=== PATIENT | male | born 1965 | race Caucasian/White ===

== ENCOUNTER 2016-06-29 06:14 | Day surgery (SDC) | payer OTHER ==
[2016-06-29] MEDS ORDERED: ACETAMINOPHEN 1,000 MG/100 ML 0 ML IV ONE (06:32)
[2016-06-29] MEDS ORDERED: CELECOXIB 100 MG CAPSULE PO ONE (06:32)
[2016-06-29] MEDS ORDERED: SCOPOLAMINE PATCH TOP ONE (06:32)
[2016-06-29] MEDS ORDERED: LACTATED RINGERS 1,000 ML IV ONE (06:41)
== END 2016-06-29 06:15 | disposition home or self-care (01) ==
DX: Z53.9 Procedure and treatment not carried out, unspecified reason (principal)

== ENCOUNTER 2016-07-15 06:15 | Day surgery (SDC) | payer OTHER ==
[2016-07-15] MEDS ORDERED: ceFAZolin 2 GM/50 ML 50 ML IV ONE (06:29)
[2016-07-15] MEDS ORDERED: CELECOXIB 100 MG CAPSULE PO ONE (06:29)
[2016-07-15] MEDS ORDERED: ACETAMINOPHEN 1,000 MG/100 ML 100 ML IV ONE (06:29)
[2016-07-15] MEDS ORDERED: SCOPOLAMINE PATCH TOP ONE (06:29)
[2016-07-15] MEDS ORDERED: LACTATED RINGERS 1,000 ML IV ONE ×2 (06:33→13:26)
[2016-07-15] MEDS ORDERED: ACETAMINOPHEN 1,000 MG/100 ML VIAL IV ONE (08:30)
[2016-07-15] MEDS ORDERED: PROPOFOL 200 MG/20 ML VIAL IVP ONE (08:30)
[2016-07-15] MEDS ORDERED: ceFAZolin 2 GM/50 ML BAG IV ONE (08:30)
[2016-07-15] MEDS ORDERED: MIDAZOLAM 2 MG/2 ML VIAL IVP ONE (08:30)
[2016-07-15] MEDS ORDERED: DEXAMETHASONE 4 MG/ML VIAL IVP ONE (08:30)
[2016-07-15] MEDS ORDERED: fentaNYL 250 MCG/5 ML VIAL IVP ONE (08:30)
[2016-07-15] MEDS ORDERED: BUPIVACAINE 0.5%-EPI 1:200000 PF 30 ML VIAL SUBQ ONE (08:30)
[2016-07-15] MEDS ORDERED: LIDOCAINE-MPF 2% 5 ML VIAL IM ONE (08:30)
[2016-07-15] MEDS ORDERED: ONDANSETRON 4 MG/2 ML VIAL IVP ONE (08:30)
[2016-07-15] MEDS ORDERED: BUPIVACAINE 0.5% PF 30 ML VIAL INFIL ONE (10:14)
[2016-07-15] MEDS ORDERED: ONDANSETRON 4 MG/2 ML VIAL ONE (10:55)
[2016-07-15] MEDS: HYDROmorphone 1 MG/ML SYRINGE ONE ×4 (11:06→11:36)
[2016-07-15] MEDS ORDERED: oxyCODONE 5 MG TABLET ONE (13:21)
== END 2016-07-15 06:16 | disposition home or self-care (01) ==
PROC: 0RBJ4ZZ Excision of Right Shoulder Joint, Percutaneous Endoscopic Approach (ICD-10-PCS; principal; 2016-07-15 07:30)
PROC: 0LM14ZZ Reattachment of Right Shoulder Tendon, Percutaneous Endoscopic Approach (ICD-10-PCS; 2016-07-15 07:30)
PROC: 0PB94ZZ Excision of Right Clavicle, Percutaneous Endoscopic Approach (ICD-10-PCS; 2016-07-15 07:30)
DX: S43.431A Superior glenoid labrum lesion of right shoulder, initial encounter (principal); M75.41 Impingement syndrome of right shoulder; M19.011 Primary osteoarthritis, right shoulder; M67.921 Unspecified disorder of synovium and tendon, right upper arm
CPT/HCPCS: 29823; 29828; 73000; 73060; A9270; C1713; J0131; J0690; J1170; J3010; J3490; J7120

== ENCOUNTER 2017-08-07 13:13 | Outpatient (CLI) | payer OTHER ==
[2017-08-07] MEDS ORDERED: IOTHALAMATE MEGLUMINE 50 ML VIAL ONE (13:25)
[2017-08-07] MEDS ORDERED: LIDOCAINE 1% 10 ML MDV ONE (13:25)
[2017-08-07] MEDS ORDERED: GADOPENTETATE DIMEGLUMINE 5 ML VIAL IVP ONE ×2 (13:26→14:23)
[2017-08-07] MEDS ORDERED: IOTHALAMATE MEGLUMINE 50 ML VIAL IVP ONE (14:23)
[2017-08-07] MEDS ORDERED: LIDOCAINE 1% 10 ML MDV SUBQ ONE (14:23)
[2017-08-07] MEDS ORDERED: BUFFERED LIDOCAINE 10 ML SYRINGE IU ONE (14:23)
--- NOTE | 2017-08-07 15:42 | XRAY Report ---
FLUOROSCOPICALLY GUIDED LEFT SHOULDER INJECTION FOR MR ARTHROGRAM: 08/07/2017 CLINICAL INDICATION: Left shoulder pain. FINDINGS: Following obtaining informed consent, the patient's left shoulder was prepped and draped in the usual sterile fashion. The skin and soft tissues were anesthetized with lidocaine. A spinal needle was inserted into the left glenohumeral joint, and following confirmation of needle positioning, a combination of iodinated contrast, dilute gadolinium, and lidocaine was injected intraarticularly. The patient tolerated the procedure well. No immediate complications. Spot image reveals no evidence of contrast extravasation. IMPRESSION: SUCCESSFUL LEFT SHOULDER INJECTION FOR MR ARTHROGRAM. FLUOROSCOPY TIME: 26 SECONDS; 1 SPOT IMAGE OBTAINED. TD: 08/07/2017 15:41
--- NOTE | 2017-08-08 09:11 | MRI Report ---
EXAM: LEFT SHOULDER MRI ARTHROGRAM WITH CONTRAST EXAM DATE: 08/07/2017 02:42 PM. CLINICAL HISTORY: Left shoulder pain. COMPARISON: Right shoulder arthrogram 12/18/2015. TECHNIQUE: Multiplanar, multisequence T1-weighted and fluid-sensitive sequences of the shoulder after an arthrographic injection of dilute gadolinium, dictated under a separate exam. Other: None. FINDINGS: Acromioclavicular Region: The acromion is type II. Moderate arthrosis acromioclavicular joint. The co racoacromial and coracoclavicular ligaments are intact. Negative for subscapularis subdeltoid bursa c ontrast. Small fluid collection subacromial subdeltoid bursa. Glenohumeral Region: No subluxation. No loose bodies. The articular cartilage is unremarkable. The gl enohumeral ligaments and joint capsule are unremarkable. Bone Marrow: No fracture, marrow edema or bone lesions. Labrum: Superior labrum tear.. Biceps Tendon: The long head of the biceps tendon and biceps tee are intact. Musculature/Rotator Cuff: Linear fluid signal deep to the distal subscapularis tendon on the sagittal oblique proton-density fat-saturated sequence. Negative for contrast signal tear subscapularis tendo n. Negative for infraspinatus and supraspinatus tendon tear. Other: The subcutaneous tissues are unremarkable. IMPRESSION: 1. Superior labrum tear. 2. Negative for rotator cuff tear. 3. Moderate arthrosis acromioclavicular joint. [facility] MUSCULOSKELETAL RADIOLOGY SECTION Referring Provider Line: [phone] SITE ID: [id number]
== END 2017-08-07 13:14 | disposition home or self-care (01) ==
LOC: DI 13:13
PROVIDERS: ATTEND Orthopaedic Surgery
DX: S43.492A Other sprain of left shoulder joint, initial encounter (principal); M19.012 Primary osteoarthritis, left shoulder
CPT/HCPCS: 23350; 73222; 77002; Q9961

== ENCOUNTER 2017-08-08 10:25 | Day surgery (SDC) | payer OTHER ==
[2017-08-08] MEDS ORDERED: LACTATED RINGERS 1,000 ML IV ONE (10:49)
[2017-08-08] MEDS ORDERED: MIDAZOLAM 2 MG/2 ML VIAL IVP ONE (11:55)
[2017-08-08] MEDS ORDERED: fentaNYL 100 MCG/2 ML VIAL IVP ONE (11:55)
[2017-08-08 13:17] VITALS: BP 109/85
[2017-08-08] MEDS ORDERED: ONDANSETRON ODT 4 MG TABLET ONE (13:48)
== END 2017-08-08 10:26 | disposition home or self-care (01) ==
LOC: SDS 10:25
PROVIDERS: ATTEND Surgery
PROC: 0DJD8ZZ Inspection of Lower Intestinal Tract, Via Natural or Artificial Opening Endoscopic (ICD-10-PCS; principal; 2017-08-08 10:45)
DX: Z12.11 Encounter for screening for malignant neoplasm of colon (principal); K64.8 Other hemorrhoids
CPT/HCPCS: 45378; J7120; Q0162

== ENCOUNTER 2018-06-22 14:26 | Outpatient (CLI) | payer OTHER ==
--- NOTE | 2018-06-22 15:54 | MRI Report ---
Reason: ANEURYSM OF UNSPECIFIED SITE Procedure Date: 06/22/2018 Accession Number: [id number] / [id number] Procedure: MRI - Angio Brain W/O (MRA) CPT Code: FULL RESULT: EXAM MRA BRAIN EXAM DATE: 06/22/2018 02:53 PM. CLINICAL HISTORY: 53-year-old man with history of aneurysm. COMPARISON: BRAIN ANGIO W/O 09/17/2015 8:01 AM. TECHNIQUE: Multiplanar, multisequence MRA sequences of the brain were performed. Other: None. Post-processing: Multiplanar 3D MIP reconstructions. IV Contrast: None. FINDINGS: RIGHT: - Visualized Internal Carotid: Patent without significant stenosis or aneurysm. - Anterior Cerebral: Patent without significant stenosis or aneurysm. - Middle Cerebral: Patent without significant stenosis or aneurysm. - Posterior Cerebral: Patent without significant stenosis or aneurysm. - Posterior Communicating: Not well seen. - Visualized Vertebral: Patent without significant stenosis or dissection. LEFT: - Visualized Internal Carotid: Patent without significant stenosis. 2 mm aneurysm is present along the anterior genu of the cavernous segment directed posteriorly and medially towards the sella, unchanged from the 09/17/2015 exam. - Anterior Cerebral: Patent without significant stenosis or aneurysm. - Middle Cerebral: Patent without significant stenosis or aneurysm. - Posterior Cerebral: Patent without significant stenosis or aneurysm. - Posterior Communicating: Not well seen. - Visualized Vertebral: Patent without significant stenosis or dissection. CENTRAL: - Anterior Communicating: Patent. No aneurysm. - Basilar: Patent without significant stenosis, dissection, or aneurysm. IMPRESSION: 1. 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 [facility]
== END 2018-06-22 14:27 | disposition home or self-care (01) ==
LOC: DI 14:26
PROVIDERS: ATTEND Family Medicine
DX: I67.1 Cerebral aneurysm, nonruptured (principal)
CPT/HCPCS: 70544

== ENCOUNTER 2022-03-04 11:57 | Outpatient (CLI) | payer OTHER ==
--- NOTE | 2022-03-04 12:04 | SLEEP CARE CONSULTATION ---
Information from patient questionnaire entered by Jennifer Romero MA. I have reviewed and concur with the information entered by Jennifer Romero MA. This document represents the service I personally performed and the decisions made by , Susy Frye ARNP. History of Present Illness Service Date and Time: 03/04/2022 1140 Initial [place] Sleepiness Scale score: 1 (01/31/2022) Current [place] Sleepiness Scale score: 1 Additional HPI information: JEANNINE CORONADO returns via video telehealth visit for follow up and results of the recently performed polysomnography. I explained the pathophysiology behind obstructive sleep apnea. We then spent quite a bit of time discussing different treatment options. For mild obstructive sleep apnea, surgery and oral appliance are alternatives to nasal CPAP therapy but in moderate or severe cases, nasal CPAP is the most effective and reliable treatment. Because apnea is primarily in supine position, then positional management therapy could be effective. Methods discussed such as positioning with pillows or obtaining commercially available positional devices to prevent supine sleep. I did review with patient how CPAP therapy works. Patient was cautioned about risks of drowsy driving until sleepiness symptoms resolve. Sleep Study - Results Type of Sleep Study: Polysomnography Prior sleep studies: Yes Year and Where: [facility] 10 YE[facility] A[facility] Polysomnography/Home Sleep Study results: IMPRESSION: The quality of the study is good. The patient had normal sleep efficiency. The sleep architecture was abnormal for sleep fragmentation and reduced amount of time spent in slow wave sleep (N3). Respiratory monitoring showed mild obstructive sleep apnea-hypopnea (AHI = 7.5) associated with frequent arousals, oxyhemoglobin desaturation and mild hypoxia (madisyn oxygen saturation of 83%). The respiratory events occurred almost exclusively during supine sleep (supine AHI = 22.9; non-supine = 3.02). Snore was light to loud in intensity. There was mild periodic leg movement of sleep contributing to the sleep fragmentation. Cardiac rhythm was normal sinus rhythm without significant arrhythmia. No abnormal behavior (parasomnia) observed during the night. Allergies and Home Medications Home medication list reviewed: Yes (no changes) Allergy and home medication list: Allergies No Known Drug Allergies Allergy (Verified 06/21/16 14:57) Review of Systems Review of systems same as previous: Yes (no changes) Cardiovascular: reports: irregular heart rate or pulse Psychiatric: reports: anxiety, depression Ear/Nose/Throat: reports: wisdom teeth removed Physical Exam Vital signs obtained and entered by: VIA PHONE: [place] [employer] Height: 5 ft 9 in Weight: 155 lb (pt reported) Body Mass Index: 22.8 BMI Classification: Healthy weight Impression and Plan 1. Obstructive Sleep Apnea-Hypopnea Syndrome, mild, with lowest oxygen saturation of 83%. Since patients apnea is primarily in supine position, patient advised to try positional therapy and agreed with plan. He is also advised to lose weight as this will reduce snoring and apnea. An oral appliance can also be used for snoring but often is not covered by insurance. Follow up is scheduled for one month to check effectiveness. 2. Periodic limb movement, mild, that did fragment patients sleep. Periodic limb movement of sleep (PLMS) is characterized by episodes of repetitive limb movements that occur during sleep and usually involve the lower limbs. The etiology is unknown. Caffeine can aggravate PLMS and should be avoided. Sleep hygiene methods can also improve sleep as well as lifestyle changes such as regular exercise. Patient was advised that no treatment is needed at this time. If symptoms increase, then further evaluation is indicated. * Positional therapy * Avoid supine sleep. * Return in one month to assess response to therapy. Counseling Topics: Sleeping position Visit Type: Telehealth Video Video Type: Doximity Patient Location: Office Location of Provider: Office Patient agrees and consents to this telehealth visit type: Yes Patient agrees to have their insurance billed: Yes Time Spent with Patient (minutes): 12 Provider Statement: I spent 100% of the Telehealth Video Call with the patient with greater than 50% spent counseling the patient and coordination of care.
== END 2022-03-04 11:58 | disposition home or self-care (01) ==
LOC: SC 11:57
PROVIDERS: ATTEND Nurse Practitioner Family
DX: G47.33 Obstructive sleep apnea (adult) (pediatric) (principal); G47.61 Periodic limb movement disorder

== ENCOUNTER 2022-04-18 13:00 | Outpatient (CLI) | payer OTHER ==
--- NOTE | 2022-04-18 13:29 | SLEEP CARE CONSULTATION ---
Information from patient questionnaire entered by Barb Baer. I have reviewed and concur with the information entered by Barb Baer. This document represents the service I personally performed and the decisions made by me, Jose D Alvarado MD, [facility]. History of Present Illness Service Date and Time: 04/18/2022 1300 Reason for follow up: annual, other (SIX WEEK F/U POSITIONAL THERAPY, INSOMNIA ) Prior sleep studies: Yes Year and Where: [facility] 10 YEARS A[facility] Type of Sleep Study: Polysomnography HPI additional information: Mr. Aguilar has mild obstructive sleep apnea-hypopnea which is positional. He chose to utilize the positioning therapy. He bought a long pillow to put behind his back and he has not slept on his back, according to his . His original complaint of insomnia has improved with limiting time spent in bed to 7 hours a night. He said his Fitbit recorded 6.5 hours of sleep a night on the average which he is happy with. Sleep Study - Results Type of Sleep Study: Polysomnography Prior sleep studies: Yes Year and Where: [facility] 10 YEARS AGO Subjective Initial [place] Sleepiness Scale score: 1 (01/31/2022) Current [place] Sleepiness Scale score: 0 (04/18/2022) Allergies and Home Medications Drug allergies reviewed: Yes Home medication list reviewed: Yes Allergy and home medication list: Allergies No Known Drug Allergies Allergy (Verified 06/21/16 14:57) Review of Systems Review of systems same as previous: Yes Physical Exam Vital signs obtained and entered by: [employer] Height: 5 ft 9 in Weight: 154 lb (per pt) Body Mass Index: 22.7 BMI Classification: Normal Impression and Plan IMPRESSION: 1. Insomnia, resolved. However, he is still taking Ambien. He will discuss with his primary care provider on how to wean off it. 2. Obstructive sleep apnea-hypopnea, mild. He will continue with the po sitioning therapy. Plan: 1. Return for a follow up on as needed basis. Follow up recommended for: High blood pressure Visit Type: Telehealth Video Video Type: Doximity Patient Location: Home Location of Provider: Office Patient agrees and consents to this telehealth visit type: Yes Patient agrees to have their insurance billed: Yes Time Spent with Patient (minutes): 10 Provider Statement: I spent 100% of the Telehealth Video Call with the patient with greater than 50% spent counseling the patient and coordination of care.
== END 2022-04-18 13:01 | disposition home or self-care (01) ==
LOC: SC 13:00
PROVIDERS: ATTEND Internal Medicine Pulmonary Disease
DX: G47.33 Obstructive sleep apnea (adult) (pediatric) (principal); G47.00 Insomnia, unspecified

== ENCOUNTER 2024-03-18 14:12 | Outpatient (CLI) | payer OTHER ==
--- NOTE | 2024-03-18 15:29 | XRAY Report ---
PROCEDURE: Knee 4+V RT INDICATIONS: RIGHT KNEE PAIN TECHNIQUE: 4 views of the knee(s) were acquired. COMPARISON: None. FINDINGS: Bones: No fractures or dislocations. No suspicious bony lesions. Small osteophyte along the media l patellar facet. Soft tissues: Small knee joint effusion. No suspicious soft tissue calcifications or masses. IMPRESSION: No acute fracture or dislocation of the right knee. Reviewed by: Keyon Collins MD on 03/18/2024 3:28 PM PDT Approved by: Keyon Collins MD on 03/18/2024 3:28 PM PDT Station ID: [id number]
== END 2024-03-18 14:13 | disposition home or self-care (01) ==
LOC: DI 14:12
PROVIDERS: ATTEND Orthopaedic Surgery
DX: M25.561 Pain in right knee (principal)